=== PATIENT | female | born 1995 | race African-American/Black ===

== ENCOUNTER 2020-10-11 10:52 | Day surgery (SDC) | payer SELFPAY ==
[2020-10-11 11:05] VITALS: BMI 23.3
[2020-10-11] MEDS ORDERED: KETOROLAC TROMETHAMINE 30 MG/1 ML VIAL IM ONE (11:28)
[2020-10-11] MEDS ORDERED: FAMOTIDINE 20 MG/50 ML IVPB 20 MG/50 ML MG IVPB ONE ×2 (11:28→11:48)
[2020-10-11] MEDS ORDERED: METOCLOPRAMIDE HCL INJECTION 10 MG/2 ML VIAL IVPB ONE (11:28)
[2020-10-11] MEDS ORDERED: SODIUM CHLORIDE 1,000 ML IV STA (11:28)
[2020-10-11] MEDS ORDERED: KETOROLAC TROMETHAMINE 30 MG/1 ML VIAL ONE (11:31)
[2020-10-11] MEDS ORDERED: METOCLOPRAMIDE HCL INJECTION 10 MG/2 ML VIAL ONE (11:48)
[2020-10-11 12:08] LABS: BASO % 0.4 % (0-2.0); EOS % 0.5 % (0-4.5); HEMATOCRIT 37.9 % (32.4-45.2); HEMOGLOBIN 12.6 GM/dL (10.7-15.3); LYMPH % 9.3 % (8-40); MCH 31.3 pg (25.7-33.7); MCHC 33.2 g/dl (32.0-36.0); MEAN CELL VOLUME 94.3 fl (80-96); MEAN PLT VOLUME 8.1 fl (7.5-11.1); MONO % 2.4 % (3.8-10.2); NEUT % 87.4 % (42.8-82.8); PLATELET COUNT 254 10^3/uL (134-434); RBC 4.02 M/mm3 (3.60-5.2); RDW 13.1 % (11.6-15.6); WHITE BLOOD COUNT 14.8 K/mm3 (4.0-10.0)
[2020-10-11 12:15] LABS: URINE APPEARANCE Clear; URINE BILIRUBIN Negative (NEGATIVE); URINE COLOR Yellow; URINE GLUCOSE (UA) Negative (NEGATIVE); URINE KETONE Trace (NEGATIVE); URINE LEUK ESTERASE 1+ (NEGATIVE); URINE NITRITE Negative (NEGATIVE); URINE PROTEIN Negative (NEGATIVE); URINE UROBILINOGEN 0.2 mg/dL (0.2-1.0)
[2020-10-11 12:36] LABS: ALBUMIN 3.7 g/dl (3.4-5.0); CALCIUM 8.7 mg/dL (8.5-10.1)
[2020-10-11 12:39] LABS: CREATININE 0.7 mg/dL (0.55-1.3)
[2020-10-11 12:41] LABS: BILIRUBIN,TOTAL 0.6 mg/dL (0.2-1); TOT PROT 7.6 g/dl (6.4-8.2)
[2020-10-11 15:06] LABS: URINE CRYSTALS AMORPHOS PHOSPHATE /hpf
[2020-10-11 15:07] LABS: EPI CELLS FEW /uL (0-25.1)
[2020-10-11 15:42] LABS: INR 1.17 (0.83-1.09); PROTHROMBIN TIME (PATIENT) 14.3 SEC (9.7-13.0)
[2020-10-11 15:45] LABS: ACTIVATED PTT 27.2 SECONDS (25.2-36.5)
[2020-10-11] MEDS ORDERED: ONDANSETRON 4 MG/2 ML VIAL IVPUSH PRN ×2 (16:23→20:06)
[2020-10-11] MEDS ORDERED: DEXAMETHASONE SOD PHOSPHATE 4 MG/1 ML VIAL ONE (16:23)
[2020-10-11] MEDS ORDERED: PROMETHAZINE HCL 25 MG/1 ML VIAL IVPUSH PRN (16:23)
[2020-10-11] MEDS ORDERED: MIDAZOLAM HCL 2 MG/2 ML SINGLE DOSE VIAL ONE (16:24)
[2020-10-11] MEDS ORDERED: ROCURONIUM BROMIDE 50 MG/5 ML SYRINGE ONE (16:24)
[2020-10-11] MEDS ORDERED: SUCCINYLCHOLINE CHLORIDE 200 MG/10 ML SYRINGE ONE (16:24)
[2020-10-11] MEDS ORDERED: LACTATED RINGERS SOLUTION 1,000 ML IV SCH (16:30)
[2020-10-11] MEDS ORDERED: MEPERIDINE HCL 25 MG/ML VIAL ONE (18:45)
[2020-10-11] MEDS ORDERED: IBUPROFEN 600 MG TABLET (FP) PO PRN (20:06)
[2020-10-11] MEDS ORDERED: IBUPROFEN 800 MG/8 ML IJ IVPB PRN (20:06)
[2020-10-11] MEDS ORDERED: ELECTROLYTE-148 SOLN 1,000 ML IV SCH (20:15)
[2020-10-11] MEDS ORDERED: MEPERIDINE HCL 25 MG/ML VIAL IVPUSH ONE (21:11)
[2020-10-11] MEDS: oxyCODONE HCL 5 MG TABLET PO PRN (23:14)
[2020-10-12] MEDS: oxyCODONE HCL 5 MG TABLET PO PRN (08:03)
[2020-10-12 09:05] LABS: HEMATOCRIT 28.3 % (32.4-45.2); HEMOGLOBIN 9.9 GM/dL (10.7-15.3); MCH 32.3 pg (25.7-33.7); MCHC 34.9 g/dl (32.0-36.0); MEAN CELL VOLUME 92.5 fl (80-96); MEAN PLT VOLUME 8.5 fl (7.5-11.1); PLATELET COUNT 198 10^3/uL (134-434); RBC 3.06 M/mm3 (3.60-5.2); RDW 13.1 % (11.6-15.6); WHITE BLOOD COUNT 8.3 K/mm3 (4.0-10.0)
[2020-10-12 12:00] VITALS: TEMP 98.4
[2020-10-12 13:38] VITALS: BP 98/61; PULSE 78
== END 2020-10-12 15:46 | disposition home or self-care (01) ==
LOC: JER 10:52 → JASUSAT 15:59 → J6S 21:19 → JASUSAT 10-12 15:46
PROVIDERS: ATTEND Obstetrics & Gynecology
PROC: 0UT54ZZ Resection of Right Fallopian Tube, Percutaneous Endoscopic Approach (ICD-10-PCS; 2020-10-11)
PROC: 10T24ZZ Resection of Products of Conception, Ectopic, Percutaneous Endoscopic Approach (ICD-10-PCS; principal; 2020-10-11 16:00)
DX: O00.101 Right tubal pregnancy without intrauterine pregnancy (principal); K66.1 Hemoperitoneum
CPT/HCPCS: 36415; 76817-TC; 80053; 81003; 83690; 84702; 84703; 85025; 85027; 85610; 85730; 86850; 86900; 86901; 87086; 87186; 88305-TC; 94760; 99285-25; C9803; U0003; U0005

== ENCOUNTER 2021-03-27 21:32 | Observation (INO) | payer OTHER ==
[2021-03-27] MEDS ORDERED: SODIUM CHLORIDE 0.9% 500 ML INFUS.BAG IV ONE (22:09)
[2021-03-27 22:28] LABS: BASO % 0.4 % (0-2.0); EOS % 1.1 % (0-4.5); HEMATOCRIT 37.4 % (32.4-45.2); LYMPH % 22.4 % (8-40); MCH 31.7 pg (25.7-33.7); MCHC 34.7 g/dl (32.0-36.0); MEAN CELL VOLUME 91.4 fl (80-96); MONO % 5.9 % (3.8-10.2); NEUT % 70.2 % (42.8-82.8); PLATELET COUNT 240 10^3/uL (134-434); RDW 13.4 % (11.6-15.6)
[2021-03-27 22:36] LABS: INR 1.1 (0.83-1.09); PROTHROMBIN TIME (PATIENT) 12.3 SEC (9.7-13.0)
[2021-03-27 22:40] LABS: ACTIVATED PTT 23.9 SECONDS (25.2-36.5)
[2021-03-27 22:55] LABS: ALBUMIN 3.3 g/dl (3.4-5.0); BLOOD UREA NITROGEN 5.5 mg/dL (7-18)
[2021-03-27 22:58] LABS: CREATININE 0.6 mg/dL (0.55-1.3)
[2021-03-27 22:59] LABS: BILIRUBIN,TOTAL 0.4 mg/dL (0.2-1); TOT PROT 7.7 g/dl (6.4-8.2)
[2021-03-28 01:08] LABS: BASO % 0.3 % (0-2.0); EOS % 0.7 % (0-4.5); HEMATOCRIT 32.2 % (32.4-45.2); HEMOGLOBIN 10.9 GM/dL (10.7-15.3); LYMPH % 12.8 % (8-40); MCH 30.8 pg (25.7-33.7); MEAN CELL VOLUME 90.7 fl (80-96); NEUT % 80.2 % (42.8-82.8); PLATELET COUNT 195 10^3/uL (134-434); RBC 3.55 M/mm3 (3.60-5.2); RDW 13.3 % (11.6-15.6); WHITE BLOOD COUNT 13.6 K/mm3 (4.0-10.0)
[2021-03-28 05:14] VITALS: BMI 22.8
[2021-03-28 06:11] LABS: HEMOGLOBIN 10.9 GM/dL (10.7-15.3); MCH 31.1 pg (25.7-33.7); MCHC 33.9 g/dl (32.0-36.0); MEAN CELL VOLUME 91.9 fl (80-96); MEAN PLT VOLUME 8.8 fl (7.5-11.1); PLATELET COUNT 197 10^3/uL (134-434); RBC 3.49 M/mm3 (3.60-5.2); RDW 13.4 % (11.6-15.6); WHITE BLOOD COUNT 10.9 K/mm3 (4.0-10.0)
[2021-03-28] MEDS ORDERED: ASCORBIC ACID 500 MG TABLET (FP) PO SCH (10:00)
[2021-03-28] MEDS ORDERED: ENOXAPARIN NA (PORCINE) 40 MG/0.4 ML DISP.SYRIN SQ SCH (10:00)
[2021-03-28 10:19] LABS: BASO % 0.4 % (0-2.0); EOS % 1.8 % (0-4.5); HEMATOCRIT 31.1 % (32.4-45.2); HEMOGLOBIN 10.8 GM/dL (10.7-15.3); LYMPH % 22.4 % (8-40); MCH 31.5 pg (25.7-33.7); MCHC 34.6 g/dl (32.0-36.0); MEAN PLT VOLUME 8.1 fl (7.5-11.1); MONO % 7.6 % (3.8-10.2); NEUT % 67.8 % (42.8-82.8); PLATELET COUNT 176 10^3/uL (134-434); RBC 3.42 M/mm3 (3.60-5.2); RDW 13.1 % (11.6-15.6); WHITE BLOOD COUNT 9.5 K/mm3 (4.0-10.0)
[2021-03-28 10:21] LABS: INR 1.15 (0.83-1.09); PROTHROMBIN TIME (PATIENT) 13.5 SEC (9.7-13.0)
[2021-03-28 10:24] LABS: ACTIVATED PTT 24.3 SECONDS (25.2-36.5)
[2021-03-28 10:36] LABS: BLOOD UREA NITROGEN 5.2 mg/dL (7-18); CALCIUM 8.5 mg/dL (8.5-10.1); MAGNESIUM 2.2 mg/dL (1.8-2.4)
[2021-03-28 10:39] LABS: CREATININE 0.6 mg/dL (0.55-1.3)
[2021-03-28 10:40] LABS: BILIRUBIN,TOTAL 0.5 mg/dL (0.2-1); TOT PROT 6.4 g/dl (6.4-8.2)
[2021-03-28 10:49] LABS: ALBUMIN 2.7 g/dl (3.4-5.0)
[2021-03-28 14:21] VITALS: BP 115/59; PULSE 101; TEMP 98.3
== END 2021-03-28 20:40 | disposition home or self-care (01) ==
LOC: JER 21:32 → UNDOADMOB 03-28 01:27 → JERBED 03-28 01:27 → OBSVTOIN 03-28 02:45 → INTOOBSV 03-28 02:45 → JERBED 03-28 04:50 → J6S 03-28 04:50 → JERBED 03-28 14:00 → J6S 03-28 14:00
PROVIDERS: ADMIT Hospitalist
PROC: 3E023GC Introduction of Other Therapeutic Substance into Muscle, Percutaneous Approach (ICD-10-PCS; principal; 2021-03-28)
PROC: 3E0337Z Introduction of Electrolytic and Water Balance Substance into Peripheral Vein, Percutaneous Approach (ICD-10-PCS; 2021-03-28)
DX: O03.9 Complete or unspecified spontaneous abortion without complication (principal); U07.1 COVID-19; D64.9 Anemia, unspecified; N93.9 Abnormal uterine and vaginal bleeding, unspecified; Z29.9 Encounter for prophylactic measures, unspecified
CPT/HCPCS: 36415; 76817-TC; 80053; 83735; 84702; 85025; 85027; 85610; 85730; 86850; 86900; 86901; 88305-TC; 93005; 93010; 96372; 99285-25; C9803; G0378; U0003; U0005

== ENCOUNTER 2022-07-26 11:47 | Emergency (ER) | payer OTHER ==
[2022-07-26 11:57] VITALS: BP 118/73; PULSE 73; RESP 18; TEMP 98.4; BMI 22.6
[2022-07-26 13:14] LABS: EPI CELLS 23 /uL (0-25.1); HCG,QUALITATIVE URINE Negative; HYALINE CASTS 1 /uL (0-3.1); PH,URINE 5.5 (5.0-8.0); URINE APPEARANCE CLOUDY; URINE BACTERIA 4453 /uL (0-1359); URINE BILIRUBIN NEGATIVE (NEGATIVE); URINE COLOR DK YELLOW; URINE GLUCOSE (UA) NEGATIVE (NEGATIVE); URINE KETONE 3+ (NEGATIVE); URINE LEUK ESTERASE 2+ (NEGATIVE); URINE NITRITE POSITIVE (NEGATIVE); URINE PROTEIN TRACE (NEGATIVE); URINE RBC 61 /uL (0-23.9); URINE UROBILINOGEN 0.2 mg/dL (0.2-1.0); URINE WBC 1633 /uL (0-25.8)
[2022-07-26] MEDS ORDERED: AZITHROMYCIN 500 MG TABLET PO ONE (13:24)
[2022-07-26] MEDS ORDERED: AZITHROMYCIN 500 MG TABLET ONE (13:29)
== END 2022-07-26 13:40 | disposition home or self-care (01) ==
LOC: JERFT 11:47
DX: N39.0 Urinary tract infection, site not specified (principal); R10.30 Lower abdominal pain, unspecified; R39.15 Urgency of urination
CPT/HCPCS: 36415; 81003; 84703; 87070; 87086; 87186; 87205; 87491; 87591; 99284-25

== ENCOUNTER 2022-12-29 18:16 | Emergency (ER) | payer OTHER ==
[2022-12-29 18:28] VITALS: BP 96/58; PULSE 63; RESP 18; TEMP 97.3; BMI 22.6
== END 2022-12-29 19:50 | disposition left against medical advice (07) ==
LOC: JERFT 18:16 → JER 18:16 → JERFT 19:50
DX: M54.50 Low back pain, unspecified (principal)
CPT/HCPCS: 99281-25